=== PATIENT | male | born 1955 | race Two or more races ===

== ENCOUNTER 2016-10-01 09:36 | Day surgery (SDC) | payer OTHER ==
[2016-09-30 11:12] VITALS: Ht 167.6 cm; Wt 80.0 kg
[2016-10-01] VITALS (15 sets, daily range): BP systolic 91–226; BP diastolic 44–102; PULSE 67–86; RESP 15–23
[~2016-10-01] VITALS: Ht 167.6 cm; Wt 80.0 kg
[~2016-10-01 09:36] MED LIST: LIDOCAINE 1%/EPI 30 ML INJ INJ ONE
[2016-10-01] MEDS ORDERED: NA PHOSPHATE/BIPHOS 133 ML ENEMA PR ONE (10:30)
--- NOTE | 2016-10-01 10:34 | RADRPT ---
PROCEDURE: Chest Radiograph. CLINICAL INDICATION: Preop TECHNIQUE: Single frontal chest radiograph. COMPARISON: None available FINDINGS: The cardiomediastinal silhouette is within normal limits. No infiltrate or effusion is seen. Th e bones are intact. IMPRESSION: 1. Unremarkable chest radiograph. RPTAT: KK .Jaxon Calabrese MD, MD Date Time Electronically viewed and signed by .Jaxon Calabrese MD, on 10/01/2016 10:34 .B/
--- NOTE | 2016-10-01 11:35 | EN ---
Date/Time of Note Date/Time of Note DATE: 10/01/16 TIME: 11:34 Event Note Surgery Surgery Event Note Please see the attached H&P, and note that this updated w/o any changes LUCRECIA GALLEGOS MD Oct 01, 2016 11:35
[2016-10-01] MEDS ORDERED: FENTAnyl 50 MCG/ML VIAL ONE (11:38)
[2016-10-01] MEDS ORDERED: ONDANSETRON 4 MG INJ ONE (11:38)
[2016-10-01] MEDS ORDERED: MIDAZOLAM 1 MG/ML 2 ML INJ ONE (11:38)
[2016-10-01] MEDS ORDERED: METOCLOPRAMIDE 10 MG INJ ONE (11:38)
[2016-10-01] MEDS ORDERED: PROPOFOL 20 ML ONE (11:38)
[2016-10-01] MEDS ORDERED: hydrALAzine 20 MG INJ ONE (12:04)
[2016-10-01] MEDS ORDERED: CEFAZOLIN 1 GM INJ ONE (12:07)
[2016-10-01] MEDS ORDERED: LIDOCAINE 1%/EPI 30 ML INJ ONE (12:18)
[2016-10-01] MEDS ORDERED: BUPIVACAINE 0.25% (MPF) 30 ML INJ ONE (12:18)
[2016-10-01] MEDS ORDERED: LIDOCAINE 1%/EPI 30 ML INJ INJ ONE (12:28)
[2016-10-01] MEDS ORDERED: BUPIVACAINE 0.25% (MPF) 30 ML INJ INJ ONE (12:28)
[2016-10-01] MEDS ORDERED: hydrALAzine 20 MG INJ IV PRN (12:30)
[2016-10-01] MEDS ORDERED: OXYCODONE/ACETAMINOPHEN (5/325) TAB PO PRN ×3 (12:30→13:00)
[2016-10-01] MEDS ORDERED: ONDANSETRON 4 MG INJ IV PRN ×2 (12:30→13:00)
[2016-10-01] MEDS ORDERED: HYDROmorphONE (0.2 MG/ML) 10ML SYG IV PRN ×3 (12:30)
[2016-10-01] MEDS ORDERED: LABETALOL HCL 20MG INJ IV PRN (12:30)
[2016-10-01] MEDS ORDERED: MEPERIDINE 25 MG INJ IV PRN (12:30)
[2016-10-01] MEDS ORDERED: DIPHENHYDRAMINE 50 MG INJ IV PRN (12:30)
[2016-10-01] MEDS ORDERED: KETOROLAC 30 MG INJ ONE (12:31)
--- NOTE | 2016-10-01 15:53 | OPR ---
DATE OF OPERATION: 10/01/2016 INDICATIONS: The patient is a 61-year-old male who first presented to my office a number o f weeks ago with chronic drainage from his left posterior perianal area. The patient had had draina ge from this area for quite some time and undergone previous incision and drainage. Examination in my office revealed a posterior midline internal fistulous opening. He also gave a history of having prior drainage in the past from the right posterior region. Examination revealed that he indeed davis d a fistula and would need surgery to fix this. He now presents for that procedure PREOPERATIVE DIAGNOSIS: Complex [id number]. POSTOPERATIVE DIAGNOSIS: Transsphincteric [id number] x2. PROCEDURE: 1. Proctosigmoidoscopy to 20 cm. 2. Submuscular fistulotomy with seton placement and packing of abscess cavity. SURGEON: Lucrecia Gallegos MD ANESTHESIA: General anesthesia. FINDINGS AND TECHNIQUE: The patient was brought to the operating room and following successful komal ction of anesthesia, was placed in the lithotomy position utilizing the Uday stirrups. He was care fully padded and protected. Sequential compression devices were placed. The patient's perianal are a was prepped with Betadine solution and he was draped with sterile towels and drapes. Rigid procto scopy was performed to a level of 20 cm. The preparation was excellent and the exam was normal. Th e scope was removed and after reapplication of Betadine solution, local anesthesia was instilled int o the perirectal tissues for postoperative analgesia. Next, using a medium Hill-Choudhury retractor was placed into the anal canal where a prominent glacing machine tender ior midline internal opening was located at the dentate line. Examination of the perianus revealed 2 external openings, one 3 fingerbreadths from the anal verge just to the left of the posterior midl ine, and one 3.5 to 4 fingerbreadths from the anal verge in the left posterior position. Using a ma lleable probe passing it from the external opening, both fistula tracts passed to the same internal opening. Next, using the electrocautery unit, the mucosa, submucosa, skin and subcutaneous tissue w ere divided with the electrocautery unit opening up the common fistula tracts. Portions of the inte rnal sphincter muscle were also divided, but there was no division of the external sphincter muscle. After curettage of the abscess cavity, which was most prominent in the left posterior position, th e fistula tract was curetted as well. A large vesi-loop was placed around the external sphincter mu scle and secured to itself with interrupted ties of 0 silk suture. This was a snug, but noncutting seton. After irrigation, no further bleeding was noted. The external abscess cavity, which was chr onic in nature, was packed with 1/2 inch iodoform gauze. A total of 30 mL of local anesthesia was i nstilled into the perirectal tissues. At the end of the procedure, sponge and needle counts were co rrect x2. The patient tolerated the procedure well, was transported to the recovery room in stable condition. Dictated By: LUCRECIA GALLEGOS MD, CH/MARNIE Conf#: [id number] DID#: [id number]
== END 2016-10-01 15:35 | disposition home or self-care (01) ==
LOC: SDS 09:36 → EDSEX 11:00 → SDS 15:35
PROVIDERS: ATTEND Colon & Rectal Surgery
DX: K60.3 Anal fistula (principal); E66.9 Obesity, unspecified; Z68.28 Body mass index [BMI] 28.0-28.9, adult
CPT/HCPCS: 45300; 46270; 71010; J0360; J0690; J1885; J2250; J2765; J3010; Z7512; Z7610; J2405

== ENCOUNTER 2017-08-09 13:09 | Inpatient (IN) | payer OTHER ==
[~2017-08-09] VITALS: Ht 172.7 cm; Wt 82.8 kg
[2017-08-09] VITALS (9 sets, daily range): BP systolic 132–225; BP diastolic 62–103; PULSE 63–68; RESP 17–22; Ht 172.7 cm; Wt 82.8 kg
--- NOTE | 2017-08-09 14:24 | RADRPT ---
PROCEDURE: XR Chest. CLINICAL INDICATION: Shortness of breath TECHNIQUE: Single portable view of the chest was obtained COMPARISON: October 01, 2016 FINDINGS: The trachea is midline. The cardiac silhouette and pulmonary vascularity are within normal limits. T he lungs are clear. The costophrenic angles are sharp. IMPRESSION: 1. No evidence of acute cardiopulmonary disease. RPTAT: AAPP Physician Micheal Date Time Electronically viewed and signed by Mahi Ortiz Physician on 08/09/2017 14:24 JL/
[2017-08-09 14:30] LABS: BASOPHILS % 0.2 % (0.0-2.0); EOSINOPHILS # 0.2 10^3/ul (0.0-0.5); HEMOGLOBIN 13.8 g/dl (14.0-18.0); LYMPHOCYTES # 2.6 10^3/ul (0.8-2.9); LYMPHOCYTES % 44.1 % (15.0-51.0); MEAN CORPUSCULAR HEMOGLOBIN 30.9 pg (29.0-33.0); MEAN CORPUSCULAR HGB CONC 33.7 g/dl (32.0-37.0); MEAN CORPUSCULAR VOLUME 91.9 fl (82.0-101.0); MEAN PLATELET VOLUME 9.4 fl (7.4-10.4); MONOCYTE # 0.5 10^3/ul (0.3-0.9); MONOCYTES % 7.6 % (0.0-11.0); NEUTROPHIL # 2.7 10^3/ul (1.6-7.5); NEUTROPHILS % 44.9 % (39.0-77.0); PLATELET COUNT 245 10^3/UL (140-415); RED BLOOD COUNT 4.46 10^6/ul (4.70-6.10); RED CELL DISTRIBUTION WIDTH 13.3 % (11.5-14.5); WHITE BLOOD COUNT 5.9 10^3/ul (4.8-10.8)
--- NOTE | 2017-08-09 14:44 | RADRPT ---
PROCEDURE: CT Brain without contrast. CLINICAL INDICATION: Neurological deficit. TECHNIQUE: A CT of the brain was performed on multidetector high-resolution CT scanner utilizing a xial sections from the skull base through the vertex without contrast. The scan was reviewed in sof t tissue brain and high frequency resolution bone algorithm windows. Images were reviewed on a high -resolution PACS workstation. One or more the following does reduction techniques were utilized: Aut omated exposure control, adjustment of the mA/ or kV according to patient's size, or use of iterativ e reconstruction technique. The exam CTDI = 42.69 mGy and the DLP = 630.24 mGy-cm. DICOM images are available. COMPARISON: None available. FINDINGS: The ventricles and sulci are mildly prominent indicative of volume loss. There is no intracranial he morrhage, mass effect or midline shift. No abnormal intra-axial or extra-axial fluid collections ar e seen. The hernandez/white matter differentiation is preserved. There are mild scattered foci of hypoattenuation in the white matter, which are nonspecific in etiol ogy but likely reflect chronic small vessel ischemic changes. There are mild intracranial vascular calcifications consistent with atherosclerosis. The visualized paranasal sinuses are essentially conor ar. IMPRESSION: 1. No acute intracranial hemorrhage, transcortical infarction or mass effect. 2. Mild intracranial atherosclerosis and chronic small vessel ischemic changes. 3. Mild generalized cerebral volume loss. RPTAT: HH .Loren Avitia MD, MD Date Time Electronically viewed and signed by .Loren Avitia MD, MD on 08/09/2017 14:44 .N/
[2017-08-09 14:46] LABS: INR 0.95; PROTIME 12.7 Sec (12.2-14.2)
[2017-08-09 14:47] LABS: ADD UMIC YES; UR ASCORBIC ACID NEGATIVE (NEGATIVE); UR BILIRUBIN (Dip) NEGATIVE (NEGATIVE); UR BLOOD (Dip) 2+ mg/dL (NEGATIVE); UR CLARITY CLEAR (CLEAR); UR COLOR YELLOW (YELLOW); UR GLUCOSE (Dip) NEGATIVE (NEGATIVE); UR KETONES (Dip) NEGATIVE (NEGATIVE); UR LEUKOCYTE ESTERASE (Dip) NEGATIVE Leu/ul (NEGATIVE); UR MUCUS FEW /HPF (NONE SEEN); UR NITRITE (Dip) NEGATIVE (NEGATIVE); UR RBC 2 /HPF (0-5); UR SPECIFIC GRAVITY (Dip) 1.024 (1.003-1.030); UR SQUAMOUS EPITHELIAL CELL FEW /HPF (FEW); UR TOTAL PROTEIN (Dip) 1+ mg/dl (NEGATIVE); UR UROBILINOGEN (Dip) NEGATIVE (NEGATIVE)
[2017-08-09 14:47] LABS: ANION GAP 16 (8-16); BLOOD UREA NITROGEN 16 mg/dl (7-20); CALCIUM 9.6 mg/dl (8.4-10.2); CARBON DIOXIDE 27 mmol/L (21-31); CHLORIDE 103 mmol/L (97-110); CREATININE 0.94 mg/dl (0.61-1.24); GLUCOSE 91 mg/dl (70-220); PARTIAL THROMBOPLASTIN TIME 33.7 Sec (25.0-35.0); POTASSIUM 4.2 mmol/L (3.5-5.1); SODIUM 142 mmol/L (135-144)
[2017-08-09 15:00] LABS: TROPONIN-I < 0.012 ng/ml (0.00-0.12)
[2017-08-09] MEDS ORDERED: ASPIRIN 325 MG TAB PO ONE (15:00)
[2017-08-09] MEDS ORDERED: ONDANSETRON 4 MG INJ IV PRN ×2 (15:00→18:00)
[2017-08-09] MEDS ORDERED: ACETAMINOPHEN 325 MG TAB PO PRN ×2 (15:00→18:00)
[2017-08-09 17:16] LABS: BARBITURATES Negative (NEGATIVE); BENZODIAZEPINES Negative (NEGATIVE); CANNABINOIDS Negative (NEGATIVE); COCAINE Negative (NEGATIVE); OPIATES Negative (NEGATIVE)
--- NOTE | 2017-08-09 17:17 | ERD ---
ER Documentation Chief Complaint Chief Complaint right shoulder pain and arm pain x 3 months, numbness to right hand x 3 day HPI Patient is a 61-year-old male with hypertension who presents for high blood pressure and arm numbness. The patient was sent by the [facility] for arm numbness and high blood pressure. The patient has right arm pain and numbness which started 3 days ago. He does not take any medication at this time for blood pressure. He said that he has weakness to his right hand. ROS All systems reviewed and are negative except as per history of present illness. Medications Home Meds No Active Prescriptions or Reported Meds Allergies Allergies: Coded Allergies: No Known Allergy (Unverified , 08/09/17) PMhx/Soc History of Surgery: No Anesthesia Reaction: No Hx Neurological Disorder: No Hx Respiratory Disorders: No Hx Cardiac Disorders: Yes (htn ) Hx Psychiatric Problems: No Hx Miscellaneous Medical Probl: No Hx Alcohol Use: No Hx Substance Use: No Hx Tobacco Use: No Smoking Status: Unknown if ever smoked FmHx Family History: No diabetes Physical Exam Vitals Vital Signs Date Time Temp Pulse Resp B/P Pulse Ox O2 Delivery O2 Flow Rate FiO2 08/09/17 15:50 64 18 181/89 99 Room Air 08/09/17 14:42 76 18 176/74 99 Room Air 08/09/17 13:14 98.0 72 18 241/102 98 Physical Exam Const: No acute distress Head: Atraumatic Eyes: Normal Conjunctiva ENT: Normal External Ears, Nose and Mouth. Neck: Full range of motion..~ No meningismus. Resp: Clear to auscultation bilaterally Cardio: Regular rate and rhythm, no murmurs Abd: Soft, non tender, non distended. 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, no slurred speech Psych: Normal Mood and Affect Result Diagram: 08/09/17 1415 08/09/17 1415 Results 24 hrs Laboratory Tests Test 08/09/17 14:15 08/09/17 14:30 White Blood Count 5.910^3/ul Red Blood Count 4.4610^6/ul Hemoglobin 13.8g/dl Hematocrit 41.0% Mean Corpuscular Volume 91.9fl Mean Corpuscular Hemoglobin 30.9pg Mean Corpuscular Hemoglobin Concent 33.7g/dl Red Cell Distribution Width 13.3% Platelet Count 34635^3/UL Mean Platelet Volume 9.4fl Neutrophils % 44.9% Lymphocytes % 44.1% Monocytes % 7.6% Eosinophils % 3.0% Basophils % 0.2% Nucleated Red Blood Cells % 0.0/100WBC Neutrophils # 2.710^3/ul Lymphocytes # 2.610^3/ul Monocytes # 0.510^3/ul Eosinophils # 0.210^3/ul Basophils # 0.010^3/ul Nucleated Red Blood Cells # 0.010^3/ul Prothrombin Time 12.7Sec Prothrombin Time Ratio 1.0 INR International Normalized Ratio 0.95 Activated Partial Thromboplast Time 33.7Sec Sodium Level 142mmol/L Potassium Level 4.2mmol/L Chloride Level 103mmol/L Carbon Dioxide Level 27mmol/L Anion Gap 16 Blood Urea Nitrogen 16mg/dl Creatinine 0.94mg/dl Glucose Level 91mg/dl Hemoglobin A1c 5.9% Calcium Level 9.6mg/dl Troponin I < 0.012ng/ml Urine Color YELLOW Urine Clarity CLEAR Urine pH 5.0 Urine Specific [place] 1.024 Urine Ketones NEGATIVEmg/dL Urine Nitrite NEGATIVEmg/dL Urine Bilirubin NEGATIVEmg/dL Urine Urobilinogen NEGATIVEmg/dL Urine Leukocyte Esterase NEGATIVELeu/ul Urine Microscopic RBC 2/HPF Urine Microscopic WBC 1/HPF Urine Squamous Epithelial Cells FEW/HPF Urine Mucus FEW/HPF Urine Hemoglobin 2+mg/dL Urine Glucose NEGATIVEmg/dL Urine Total Protein 1+mg/dl Current Medications Medications (Trade) Dose Ordered Sig/Yulia Route PRN Reason Start Time Stop Time Status Last Admin Dose Admin Labetalol HCl (Labetalol) 20 mg Q20M PRN IV ELEVATED BLOOD PRESSURE 08/09/17 14:30 Aspirin (Aspirin) 325 mg ONCE ONCE PO 08/09/17 15:00 08/09/17 15:01 DC 08/09/17 15:01 Ondansetron HCl (Zofran Inj) 4 mg ER BRIDGE PRN IV NAUSEA AND/OR VOMITING 08/09/17 15:00 08/10/17 14:59 Acetaminophen (Tylenol Tab) 650 mg ER BRIDGE PRN PO MILD PAIN/FEVER 08/09/17 15:00 08/10/17 14:59 Procedures/MDM EKG read by me: Rate/Rhythm: Regular rate and rhythm at a normal rate Intervals: Normal Impression: No evidence of ischemia or arrhythmia CT brain shows no bleeding or mass per radiology. Patient is a 61-year-old male presents with acute hypertension as well as right arm numbness. I was concerned for hypertensive emergency. It is also possible that he may have stroke and I believe admission to the hospital is appropriate. He was given aspirin after he passed a swallow evaluation. He had an NIH stroke scale performed. The patient will be admitted to the care of Dr. Poe to a telemetry bed as the patient has [facility] insurance. He was given labetalol IV for blood pressure management. Critical Care: Time: 35 minutes excluding all billable procedures. Treatments/Evaluations: Close monitoring and treatment of unstable vital signs, cardiorespiratory, and neurologic status, while maintaining tight balance of fluid, respiratory, and cardiac interventions. Departure Diagnosis: Primary Impression: Hypertensive emergency Additional Impression: Pain of right arm Condition: PORTILLO Velasco MD Aug 09, 2017 17:17
[2017-08-09] MEDS ORDERED: MAGNESIUM HYDROXIDE 30ML CUP PO PRN (18:00)
[2017-08-09] MEDS ORDERED: morphine 2 MG INJ IV PRN (18:00)
[2017-08-09] MEDS ORDERED: NACL 0.9% 3 ML SYG IV SCH (18:00)
[2017-08-09] MEDS ORDERED: DOCUSATE SODIUM 100 MG CAP PO PRN (18:00)
--- NOTE | 2017-08-09 18:19 | QN ---
Documentation Comment [id number] MALCOLM BUSTILLO MD Aug 09, 2017 18:19
[2017-08-09] MEDS ORDERED: hydrALAzine 20 MG INJ IV PRN (19:00)
[2017-08-09 19:36] LABS: CHOL/HDL RATIO 7.1 RATIO
[2017-08-09] MEDS: LABETALOL HCL 20MG INJ IV PRN ×2 (20:37→21:28)
--- NOTE | 2017-08-09 20:37 | HP ---
DATE OF ADMISSION: 08/09/2017 HISTORY OF PRESENT ILLNESS: Geno Dean is a 61-year-old male who has a history of hypertension, history of proctosigmoidoscopy, history of submuscular fistulotomy, with seton placement and packing of abscess cavity 09/2016. The patient now presents with right upper extremity pain and some numbness. Denies any slurred speech, diplopia, blurred vision. Denies any weakness of the lower extremity or left upper extremity. The patient denies any headache as well as no chest pain. The patient seen in the ER. Had brain CT scan done, shows no acute intracranial hemorrhage, transcortical infarction or mass effect, mild intracranial atherosclerosis and chronic small vessel ischemic changes, mild generalized cerebral volume loss. The patient had a chest x-ray done. No evidence of acute cardiopulmonary disease. The patient had blood pressure recorded as in the ER 181/89 to 241/_120 Hematocrit 41, sodium 142, potassium 4.2. EKG recorded as in normal sinus rhythm, and the patient is being admitted for further management. PAST MEDICAL HISTORY: Hypertension and a history of fistula surgery rectum 2016. ALLERGIES: NEGATIVE. FAMILY HISTORY: Hypertension. SOCIAL HISTORY: Negative. MEDICATIONS AT HOME: Does not know the name of the medicine. REVIEW OF SYSTEMS HEENT: As mentioned. RESPIRATORY: As mentioned. CARDIOVASCULAR: No chest pain or palpitation right now. ABDOMEN: Unremarkable. EXTREMITIES: Unremarkable. GENITOURINARY: Unremarkable. MUSCULOSKELETAL: Unremarkable. PHYSICAL EXAMINATION: GENERAL: The patient is awake, alert, overweight. VITAL SIGNS: Current as mentioned above. The patient's blood pressure 225/103. HEENT: Head is atraumatic, normocephalic. Pupils equal, reactive to light. NECK: Supple. There is no JVD. LUNGS: Clear. CARDIOVASCULAR: S1, S2 are normal. ABDOMEN: Soft, nontender. Bowel sounds positive. No palpable mass or hepatosplenomegaly. No guarding, rebound tenderness. EXTREMITIES: There is no cyanosis, clubbing or edema. CENTRAL NERVOUS SYSTEM: The patient is awake, alert with no focal deficit. LABORATORY DATA: As mentioned above. IMPRESSION: 1. Uncontrolled malignant hypertension. 2. Rule out acute coronary syndrome. 3. Obesity. 4. Rule out dyslipidemia. PLAN: Admit this patient. The patient will have troponin sent, 2D echo, carotid duplex scan. Cardiology consultation will be considered. Blood pressure will be controlled. Home medications will be reviewed and continued. DVT prophylaxis. PPI. Orders were done. Dictated By: MALCOLM BUSTILLO MD BS/NTS Conf#: [id number] DID#: [id number] CC: MALCOLM BUSTILLO MD;*EndCC* MTDD
[2017-08-09 21:31] LABS: CREATINE KINASE 316 IU/L (23-200)
[2017-08-09 21:54] LABS: CK-MB 2.09 ng/ml (0.0-2.4); TROPONIN-I < 0.012 ng/ml (0.00-0.12)
--- NOTE | 2017-08-09 22:00 | RADRPT ---
PROCEDURE: US carotid arteries. CLINICAL INDICATION: Dizziness. Syncope. TECHNIQUE: Multiple sonographic images of the carotid arteries and vertebral arteries were obtaine d utilizing hernandez scale, duplex, and color-flow imaging. The images were reviewed on a PACS workstati on. COMPARISON: No prior studies are available for comparison. FINDINGS: Evaluation of the right carotid bifurcation region reveals mild atherosclerotic disease. Evaluation of the left carotid bifurcation region reveals mild atherosclerotic disease. There is antegrade flow within the vertebral arteries bilaterally. RIGHT CAROTID MEASUREMENTS: Common Carotid Dehfuu30 (cm/sec) Internal Carotid Artery 102 (cm/sec) External Carotid Artery 125 (cm/sec) Vertebral Artery 54 (cm/sec) Internal Carotid/Common Carotid1.5 LEFT CAROTID MEASUREMENTS: Common Carotid Emvudq89 (cm/sec) Internal Carotid Artery 70 (cm/sec) External Carotid Artery 136 (cm/sec) Vertebral Artery 59 (cm/sec) Internal Carotid/Common Carotid0.9 Validated velocity measurements with angiographic measurements. Velocity criteria are extrapolated f rom diameter data as defined by the Society of Radiologists in Ultrasound Consensus Conference. Radi ology 2003; 229;340-346. This study does indirectly reference the measurement of the distal ICA denny meter as the denominator for stenosis measurement. IMPRESSION: 1. Less than 50% stenosis bilaterally in the internal carotid arteries. 2. Normal antegrade flow in the vertebral arteries bilaterally. RPTAT: QQ SRU Consensus Conference Criteria for the Diagnosis of Carotid Artery Stenosis* Degree of Stenosis, % ICA PSV, cm/sec Plaque Estimate, % ICA/CCA PSV Ratio Normal <125 None <2.0 <50 <125 <50 <2.0 50 69 125-230 >50 2.0-4.0 >70 but less than near occlusion >230 >50 <4.0 Near occlusion High, low, or undetectable Visible Variable Total occlusion Undetectable Visible, no detectable lumen Not applicable *Cartoid artery stenosis: hernandez-scale and Doppler US diagnosis. Society of Radiologists in Ultrasound Consensus Conference. Radiology 2003; 229: 340-346 .Kojo Ro MD, Date Time Electronically viewed and signed by .Kojo Ro MD, on 08/09/2017 22:00 .R/
--- NOTE | 2017-08-09 22:29 | CONS ---
DATE OF ADMISSION: 08/09/2017 DATE OF CONSULTATION: 08/09/2017 CARDIOLOGY CONSULTATION REASON FOR CONSULTATION: Hypertensive urgency/emergency. REQUESTING PHYSICIAN: Dr. Neo Bustillo HISTORY OF PRESENT ILLNESS: Mr. Dean is a 61-year-old male with a history of hypertension, anal fistula, status post treatment secondary to abscess, who presented with right upper extremity pain, some numbness radiating down to his fingers. Initially upon arrival, temperature 98, blood pressure 241/102, pulse 72, respiratory rate 18, saturating 98%. The patient's labs revealed a white blood cell count of 5.9, hemoglobin 13.8, platelet count of 245, sodium 142, potassium 4.2, creatinine 0.9, BUN of 16. Troponin negative. LDL 199, HDL 39. INR of 0.95. Tox screen negative. UA negative. The patient underwent a chest x-ray revealing no evidence of acute cardiopulmonary abnormalities. The patient underwent a head CT revealing no acute intracranial hemorrhage, mild intracranial atherosclerosis, mild generalized cerebral volume loss. The patient's electrocardiogram revealed sinus rhythm at a rate of 66, normal axis, normal intervals with no significant ST-T wave abnormalities. The patient has been admitted to the floor and since admit to the floor, patient has been started on Toprol, Diovan, clonidine and has p.r.n. labetalol written for, as well as hydralazine. The patient continues to have systolic blood pressures in the 190s at this time. PAST MEDICAL HISTORY: As above in HPI. MEDICATIONS CURRENTLY IN HOSPITAL: 1. Lovenox 40 mg p.o. daily. 2. Aspirin 325 mg daily. 3. Toprol-XL 25 mg daily. 4. Diovan 80 mg daily. 5. Clonidine 0.1 mg p.o. q.8. 6. Protonix 40 mg daily. 7. Hydralazine 20 IV q.6 p.r.n. 8. Tylenol p.r.n. 9. Zofran p.r.n. 10. Morphine p.r.n. 11. Milk of magnesia. 12. Labetalol p.r.n. ALLERGIES: NO KNOWN DRUG ALLERGIES. SOCIAL HISTORY: No tobacco., ETOH, patient denies. No illicit drug use. FAMILY HISTORY: No history of sudden cardiac or early CAD. REVIEW OF SYSTEMS: As above in HPI. CONSTITUTIONAL: No fevers, chills. PULMONARY: No current shortness of breath. CARDIOVASCULAR: No current chest pain. GASTROINTESTINAL: No vomiting. GENITOURINARY: No hematuria. MUSCULOSKELETAL: Right upper extremity pain. PSYCHIATRIC: No documented psych history. NEUROLOGIC: No documented history of CVA. PHYSICAL EXAMINATION: VITAL SIGNS: Temperature of 98, blood pressure most recently 190/90, pulse 64, respirations 17, saturating 99%. GENERAL: The patient is alert, awake, in no acute distress. NECK: JVP approximately 8 to 9 cm of water. CHEST: Fair air movement throughout. HEART: Regular rate and rhythm, normal S1, S2, I/ systolic murmur, nondisplaced PMI. ABDOMEN: Positive bowel sounds, soft. EXTREMITIES: No pitting edema, 1+ pulses bilaterally, posterior tibial. LABORATORY DATA: As above in HPI with no further labs for my review at this time. IMAGING STUDIES: No further imaging studies for my review at this time. ECG: As above in HPI. No further electrocardiograms for my review at this time. IMPRESSION: 1. Hypertensive urgency/emergency. 2. Dyslipidemia with low HDL. 3. Right upper extremity pain, numbness. 4. Hypertriglyceridemia. 5. Anemia, mild. RECOMMENDATIONS: 1. At this time, would maintain patient on telemetry monitoring to follow rhythm and rate control closely. 2. Complete a rule out for myocardial infarction to ensure that the patient has not developed any end organ damage in the setting of hypertensive urgency/ emergency. 3. Check a 2D echocardiogram to further assess patient's ejection fraction, wall motion and any major abnormalities. 4. Would continue the patient's p.o. antihypertensives that have been started with up titration to improve overall systolic blood pressure control, and we will add some doses this evening to aid. Continue the patient's IV push p.r.n. medications. 5. Continue the patient's aspirin for prophylaxis against cardiovascular events. Thank you for allowing me to take part in the care of this patient. I will continue to follow along very closely with you with further recommendations to be made as the patient progresses through his inpatient hospital clinical course. Dictated By: REY BAUTISTA/MARNIE Conf#: [id number] DID#: [id number] CC: NEO BUSTILLO MD;*EndCC* MTDD
[2017-08-09] MEDS: VALSARTAN 80 MG TAB PO SCH (23:06)
[2017-08-10] VITALS (12 sets, daily range): BP systolic 123–152; BP diastolic 59–68; PULSE 60–80; RESP 16–20
[2017-08-10] MEDS: PANTOPRAZOLE (EC) 40 MG TAB PO SCH (05:23)
[2017-08-10 07:34] LABS: CREATINE KINASE 236 IU/L (23-200)
[2017-08-10 07:48] LABS: CHOL/HDL RATIO 7.4 RATIO; CK-MB 1.31 ng/ml (0.0-2.4); TROPONIN-I < 0.012 ng/ml (0.00-0.12)
[2017-08-10] MEDS: METOPROLOL (XL) 25 MG TAB PO SCH (08:42)
[2017-08-10] MEDS: ASPIRIN 325 MG TAB PO SCH (08:43)
[2017-08-10] MEDS: VALSARTAN 80 MG TAB PO SCH ×2 (08:43→17:51)
[2017-08-10] MEDS ORDERED: VALSARTAN 80 MG TAB PO SCH (09:00)
[2017-08-10] MEDS: ENOXAPARIN 40 MG/0.4 ML SYG SC SCH (09:23)
--- NOTE | 2017-08-10 11:32 | CONS ---
Date/Time of Note Date/Time of Note DATE: 08/10/17 TIME: 11:30 Assessment/Plan Assessment/Plan Additional Assessment/Plan 1. Hypertensive urgency/emergency- BP in better range, will monitor now. 2. Dyslipidemia with low HDL- Rx as neeeded. 3. Right upper extremity pain, numbness- doubt cardiac, 4. Hypertriglyceridemia. 5. Anemia, mild - no signs of bleeding. Consultation Date/Type/Reason Admit Date/Time Aug 09, 2017 at 15:00 Initial Consult Date 24 HR Interval Summary Free Text/Dictation NO acute events BP in good range now - no CP, no ectopy on tele. ROS: No fever, no chills, no nausea, no vomiting, no diarrhea/constipation No recent weight changes No chest pain, no PND, no orthopnea No dizziness, blurred vision No thirst, no heat or cold intolerance Exam/Review of Systems Vital Signs Vitals Vital Signs Date Time Temp Pulse Resp B/P Pulse Ox O2 Delivery O2 Flow Rate FiO2 08/10/17 08:12 68 08/10/17 07:46 98.5 18 123/62 95 08/09/17 19:20 Room Air Intake and Output 08/09/17 08/09/17 08/10/17 15:00 23:00 07:00 Intake Total 350 ml Balance 350 ml Exam General: WN/WD/NAD, AOx 2-3 HEENT: Unicetric/atraumatic/EOMI (follow commands) NECK: JVD elevated, no thyromegaly Lymph: no lymphadenopathy HEART: regular with no S3, II/ systolic murmur at apex LUNGS: Coarse sounds ABD: soft, NT, ND, +BS : Intact Neuro: non focal SKIN: chronic changes EXT: trace edema Results Result Diagram: 08/09/17 1415 08/09/17 1415 Results 24 hrs Laboratory Tests Test 08/09/17 14:15 08/09/17 14:30 08/09/17 21:00 08/10/17 06:34 White Blood Count 5.9 Red Blood Count 4.46 L Hemoglobin 13.8 L Hematocrit 41.0 L Mean Corpuscular Volume 91.9 Mean Corpuscular Hemoglobin 30.9 Mean Corpuscular Hemoglobin Concent 33.7 Red Cell Distribution Width 13.3 Platelet Count 245 Mean Platelet Volume 9.4 Neutrophils % 44.9 Lymphocytes % 44.1 Monocytes % 7.6 Eosinophils % 3.0 Basophils % 0.2 Nucleated Red Blood Cells % 0.0 Neutrophils # 2.7 Lymphocytes # 2.6 Monocytes # 0.5 Eosinophils # 0.2 Basophils # 0.0 Nucleated Red Blood Cells # 0.0 Prothrombin Time 12.7 Prothrombin Time Ratio 1.0 INR International Normalized Ratio 0.95 Activated Partial Thromboplast Time 33.7 Sodium Level 142 Potassium Level 4.2 Chloride Level 103 Carbon Dioxide Level 27 Anion Gap 16 Blood Urea Nitrogen 16 Creatinine 0.94 Glucose Level 91 Hemoglobin A1c 5.9 Calcium Level 9.6 Troponin I < 0.012 < 0.012 < 0.012 Triglycerides Level 199 H 197 H Cholesterol Level 278 H 245 H LDL Cholesterol, Calculated 199 173 HDL Cholesterol 39 33 Cholesterol/HDL Ratio 7.1 7.4 Urine Color YELLOW Urine Clarity CLEAR Urine pH 5.0 Urine Specific [place] 1.024 Urine Ketones NEGATIVE Urine Nitrite NEGATIVE Urine Bilirubin NEGATIVE Urine Urobilinogen NEGATIVE Urine Leukocyte Esterase NEGATIVE Urine Microscopic RBC 2 Urine Microscopic WBC 1 Urine Squamous Epithelial Cells FEW Urine Mucus FEW A Urine Hemoglobin 2+ H Urine Glucose NEGATIVE Urine Total Protein 1+ H Urine Opiates Screen Negative Urine Barbiturates Negative Urine Amphetamines Screen Negative Urine Benzodiazepines Screen Negative Urine Cocaine Screen Negative Urine Cannabinoids Negative Creatine Kinase 316 H 236 H Creatine Kinase Index 0.7 0.6 Creatinine Kinase MB (Mass) 2.09 1.31 Medications Medications Current Medications Ondansetron HCl (Zofran Inj) 4 mg Q6H PRN IV NAUSEA AND/OR VOMITING; Start at 18:00 Acetaminophen (Tylenol Tab) 650 mg Q6H PRN PO PAIN LEVEL 1-3 OR FEVER; Start 08/09/17 at 18:00 Morphine Sulfate (morphine) 2 mg Q4H PRN IV SEVERE PAIN LEVEL 7-10; Start at 18:00 Docusate Sodium (Colace) 100 mg Q12H PRN PO CONSTIPATION; Start 08/09/17 at 18 :00 Magnesium Hydroxide (Milk Of Mag) 30 ml DAILY PRN PO CONSTIPATION; Start 08/09 at 18:00 Pantoprazole (Protonix Tab) 40 mg DAILY@06 PO Last administered on 08/10/17t 05:23; Admin Dose 40 MG; Start 08/10/17 at 06:00 Enoxaparin Sodium (Lovenox) 40 mg DAILY SC Last administered on 08/10/17 09: 23; Admin Dose 40 MG; Start 08/10/17 at 09:00 Aspirin (Aspirin) 325 mg DAILY PO Last administered on 08/10/17 08:43; Admin Dose 325 MG; Start 08/10/17 at 09:00 Metoprolol Succinate (Toprol Xl) 25 mg DAILY PO Last administered on 08:42; Admin Dose 25 MG; Start 08/10/17 at 09:00 Clonidine (Catapres) 0.1 mg Q8 PO Last administered on 08/10/17 05:23; Admin Dose 0.1 MG; Start 08/09/17 at 22:00 Hydralazine HCl (Apresoline) 20 mg Q6H PRN IV for sbp >170; Start 08/09/17 at 19:00 RUBEN LEGER MD Aug 10, 2017 11:32
--- NOTE | 2017-08-10 14:26 | RADRPT ---
Vent Rate: 70 bpm RR Interval: 0 msec AL Interval: 186 msec QRS Duration: 86 msec QT Interval: 406 msec QTC Interval: 438 msec P-R-T [place]: 56 - 56 - 57 degrees Normal sinus rhythm Normal ECG Electronically Signed By: Ramesh Matias [id number]
--- NOTE | 2017-08-10 19:51 | PN ---
Date/Time of Note Date/Time of Note DATE: 08/10/17 TIME: 19:50 Assessment/Plan VTE Prophylaxis VTE Prophylaxis Intervention: other Lines/Catheters IV Catheter Type (from Nrsg): Saline Lock Urinary Cath still in place: No Assessment/Plan Chief Complaint/Hosp Course IMPRESSION: 1. Uncontrolled malignant hypertension.better 2. Rule out acute coronary syndrome. 3. Obesity. 4. dyslipidemia. 5 r/o renovascular htn plan kid us lipitor Problems: Subjective 24 Hr Interval Summary ENT: no complaints Respiratory: no complaints Cardiovascular: no complaints Gastrointestinal: no complaints Genitourinary: no complaints Neurologic: no complaints, No dizziness, No focal-weakness, No headache Exam/Review of Systems Vital Signs Vitals Vital Signs Date Time Temp Pulse Resp B/P Pulse Ox O2 Delivery O2 Flow Rate FiO2 08/10/17 16:06 61 08/10/17 15:59 97.8 18 143/66 97 08/09/17 19:20 Room Air Intake and Output 08/09/17 08/09/17 08/10/17 15:00 23:00 07:00 Intake Total 350 ml Balance 350 ml Exam Neck: supple Respiratory: clear to auscultation Cardiovascular: regular rate and rhythm Gastrointestinal: soft Musculoskeletal: nl extremities to inspection Extremities: normal pulses Neurological: MATE FOURTH II-XII intact Results Result Diagram: 08/09/17 1415 08/09/17 1415 Results 24 hrs Laboratory Tests Test 08/09/17 21:00 08/10/17 06:34 Creatine Kinase 316 H 236 H Creatine Kinase Index 0.7 0.6 Creatinine Kinase MB (Mass) 2.09 1.31 Troponin I < 0.012 < 0.012 Triglycerides Level 197 H Cholesterol Level 245 H LDL Cholesterol, Calculated 173 HDL Cholesterol 33 Cholesterol/HDL Ratio 7.4 Medications Medications Current Medications Ondansetron HCl (Zofran Inj) 4 mg Q6H PRN IV NAUSEA AND/OR VOMITING; Start at 18:00 Acetaminophen (Tylenol Tab) 650 mg Q6H PRN PO PAIN LEVEL 1-3 OR FEVER; Start 08/09/17 at 18:00 Morphine Sulfate (morphine) 2 mg Q4H PRN IV SEVERE PAIN LEVEL 7-10; Start at 18:00 Docusate Sodium (Colace) 100 mg Q12H PRN PO CONSTIPATION; Start 08/09/17 at 18 :00 Magnesium Hydroxide (Milk Of Mag) 30 ml DAILY PRN PO CONSTIPATION; Start 08/09 at 18:00 Pantoprazole (Protonix Tab) 40 mg DAILY@06 PO Last administered on 08/10/17 05:23; Admin Dose 40 MG; Start 08/10/17 at 06:00 Enoxaparin Sodium (Lovenox) 40 mg DAILY SC Last administered on 08/10/17 09: 23; Admin Dose 40 MG; Start 08/10/17 at 09:00 Aspirin (Aspirin) 325 mg DAILY PO Last administered on 08/10/17 08:43; Admin Dose 325 MG; Start 08/10/17 at 09:00 Metoprolol Succinate (Toprol Xl) 25 mg DAILY PO Last administered on 08:42; Admin Dose 25 MG; Start 08/10/17 at 09:00 Clonidine (Catapres) 0.1 mg Q8 PO Last administered on 08/10/17 14:24; Admin Dose 0.1 MG; Start 08/09/17 at 22:00 Hydralazine HCl (Apresoline) 20 mg Q6H PRN IV for sbp >170; Start 08/09/17 at 19:00 MALCOLM BUSTILLO MD Aug 10, 2017 19:51
[2017-08-10] MEDS: ATORVASTATIN 40 MG TAB PO SCH (21:14)
[2017-08-11] VITALS (12 sets, daily range): BP systolic 114–147; BP diastolic 56–66; PULSE 57–65; RESP 17–20
--- NOTE | 2017-08-11 03:34 | RADRPT ---
PROCEDURE: US Retroperitoneum. CLINICAL INDICATION: SHIRLEY. TECHNIQUE: Multiple sonographic images of the retroperitoneum were obtained. Evaluation of the ki dneys and bladder was performed as well as visualization of the aorta and other retroperitoneal stru ctures using a curved array transducer. The images were reviewed on a PACS workstation. COMPARISON: None. FINDINGS: The right kidney measures 9.4 x 5.6 x 4.7 centimeters and the left kidney measures 9.8 x 5.2 x 4.8 c entimeters. No hydronephrosis or renal calculi are seen. The kidneys are normal in echogenicity. T he bladder is unremarkable in appearance. IMPRESSION: 1. Unremarkable retroperitoneal ultrasound.. RPTAT: HRSR Physician Alethea Date Time Electronically viewed and signed by Physician Alethea on 08/11/2017 03:34 RR/
[2017-08-11] MEDS: PANTOPRAZOLE (EC) 40 MG TAB PO SCH (05:34)
[2017-08-11] MEDS: METOPROLOL (XL) 25 MG TAB PO SCH (08:29)
[2017-08-11] MEDS: ASPIRIN 325 MG TAB PO SCH (08:29)
[2017-08-11] MEDS: VALSARTAN 80 MG TAB PO SCH ×2 (08:30→17:22)
[2017-08-11] MEDS: ENOXAPARIN 40 MG/0.4 ML SYG SC SCH (08:31)
[2017-08-11 10:02] LABS: ALBUMIN 4.2 g/dl (3.3-4.9); ALBUMIN/GLOBULIN RATIO 1.23; BILIRUBIN,INDIRECT 0.2 mg/dl (0-1.1); BILIRUBIN,TOTAL 0.2 mg/dl (0.2-1.3); CALCIUM 9.1 mg/dl (8.4-10.2); CREATININE 1.08 mg/dl (0.61-1.24); POTASSIUM 4.1 mmol/L (3.5-5.1); TOTAL PROTEIN 7.6 g/dl (6.1-8.1)
--- NOTE | 2017-08-11 15:44 | CONS ---
Date/Time of Note Date/Time of Note DATE: 08/11/17 TIME: 15:37 Assessment/Plan Assessment/Plan Chief Complaint/Hosp Course IMPRESSION: 1. Hypertensive urgency/emergency-now improved on current regimen. Trop negative x 3 2. Dyslipidemia with low HDL. 3. Right upper extremity pain, numbness. 4. Hypertriglyceridemia. 5. Anemia, mild. Recc: -Tele -Continue diovan/BB/clonidine -Continue statin/asa -Will f/u echo -If BP remains stable then ok for d/c planning from cardiac standpoint Problems: Consultation Date/Type/Reason Admit Date/Time Aug 09, 2017 at 15:00 Initial Consult Date 08/09/2017 Type of Consultation: cardiology Reason for Consultation HTN Referring Provider: MALCOLM BUSTILLO MD Exam/Review of Systems Vital Signs Vitals Vital Signs Date Time Temp Pulse Resp B/P Pulse Ox O2 Delivery O2 Flow Rate FiO2 08/11/17 12:20 60 08/11/17 11:43 98.1 17 114/56 96 08/09/17 19:20 Room Air Intake and Output 08/10/17 08/10/17 08/11/17 15:00 23:00 07:00 Intake Total 1120 ml 400 ml Balance 1120 ml 400 ml Exam Review of Systems: CONSTITUTIONAL: No fevers, chills. PULMONARY: No sob CARDIOVASCULAR: No chest pain/palpitations GASTROINTESTINAL: No nausea/vomiting. GENITOURINARY: No hematuria/dysuria. MUSCULOSKELETAL: No myagias/arthalgias. PSYCHIATRIC: The patient denies depression. NEUROLOGIC: No weakness Constitutional: alert, oriented Psych: no complaints Head: normocephalic ENMT: mucosa pink and moist Neck: jvd (8 cm waTER), supple Respiratory: clear to auscultation Cardiovascular: regular rate and rhythm Gastrointestinal: non-tender, soft Musculoskeletal: muscle tone (NORMAL) Extremities: edema (none) Neurological: other (NO focal deficits) Results Result Diagram: 08/09/17 1415 08/11/17 0839 Results 24 hrs Laboratory Tests Test 08/11/17 08:39 Sodium Level 139 Potassium Level 4.1 Chloride Level 102 Carbon Dioxide Level 27 Anion Gap 14 Blood Urea Nitrogen 20 Creatinine 1.08 Glucose Level 111 Calcium Level 9.1 Total Bilirubin 0.2 Direct Bilirubin 0.00 Indirect Bilirubin 0.2 Aspartate Amino Transf (AST/SGOT) 69 H Alanine Aminotransferase (ALT/SGPT) 92 H Alkaline Phosphatase 75 Total Protein 7.6 Albumin 4.2 Globulin 3.40 H Albumin/Globulin Ratio 1.23 Medications Medications Current Medications Ondansetron HCl (Zofran Inj) 4 mg Q6H PRN IV NAUSEA AND/OR VOMITING; Start at 18:00 Acetaminophen (Tylenol Tab) 650 mg Q6H PRN PO PAIN LEVEL 1-3 OR FEVER; Start 08/09/17 at 18:00 Morphine Sulfate (morphine) 2 mg Q4H PRN IV SEVERE PAIN LEVEL 7-10; Start at 18:00 Docusate Sodium (Colace) 100 mg Q12H PRN PO CONSTIPATION; Start 08/09/17 at 18 :00 Magnesium Hydroxide (Milk Of Mag) 30 ml DAILY PRN PO CONSTIPATION; Start 08/09 at 18:00 Pantoprazole (Protonix Tab) 40 mg DAILY@06 PO Last administered on 08/11/17 05:34; Admin Dose 40 MG; Start 08/10/17 at 06:00 Enoxaparin Sodium (Lovenox) 40 mg DAILY SC Last administered on 08/11/17 08: 31; Admin Dose 40 MG; Start 08/10/17 at 09:00 Aspirin (Aspirin) 325 mg DAILY PO Last administered on 08/11/17 08:29; Admin Dose 325 MG; Start 08/10/17 at 09:00 Metoprolol Succinate (Toprol Xl) 25 mg DAILY PO Last administered on 08:29; Admin Dose 25 MG; Start 08/10/17 at 09:00 Clonidine (Catapres) 0.1 mg Q8 PO Last administered on 08/11/17 14:19; Admin Dose 0.1 MG; Start 08/09/17 at 22:00 Hydralazine HCl (Apresoline) 20 mg Q6H PRN IV for sbp >170; Start 08/09/17 at 19:00 Atorvastatin Calcium (Lipitor) 40 mg HS PO Last administered on 08/10/17 21: 14; Admin Dose 40 MG; Start 08/10/17 at 21:00 REY ADAMS 29, 2017 15:43
--- NOTE | 2017-08-11 17:08 | RADRPT ---
Echocardiogram Report Patient Name: LEXUS KUHN Gender: Male Date: 1955 Study Date: 10-Aug-2017 Mule Driver: Mamadou [facility] Location: 5557[address]A Ref. Physician: MALCOLM BUSTILLO Quality: Adequate Procedures: Transthoracic echocardiogram with complete 2D, M-Mode, and doppler examination. Indications: Coronary Artery Disease. 2D/M Mode Doppler Measurement Value Normal Ranges Measurement Value Normal Ranges LVIDd 2D 4.9 3.5 - 5.6 cm AV Peak Cesar 1.2 m/sec LVIDs 2D 3.3 2.1 - 4.1 cm AV Peak PG 5.8 mmHg LVPWd 2D 1.3 0.6 - 1.1 cm LVOT Peak Cesar 1.0 m/sec IVSd 2D 1.3 0.6 - 1.1 cm LVOT Peak PG 3.9 mmHg AoR Diam 2D 2.9 2.0 - 3.7 cm MV E Peak Cesar 0.6 m/sec EDV 2D 110.6 cm3 MV A Peak Cesar 0.6 m/sec ESV 2D 36.2 cm3 MV E/A 0.9 LA Dimen 2D 2.8 2.3 - 4.0 cm MV Decel Time 206 msec MV Decel Holt 3 MV E/A 0.9 Findings Left Ventricle: Normal left ventricular systolic function. Normal left ventricular cavity size. Mild concentric left ventricular hypertrophy. Ejection fraction is visually estimated at 60 %. Tissue Doppler/Mitral Doppler indices are consistent with impaired relaxation (Stage I diastolic dysfunction). Right Ventricle: Normal right ventricular size. Normal right ventricular systolic function. Left Atrium: The left atrium is normal in size. Right Atrium: The right atrium is normal in size. Mitral Valve: Mild mitral leaflet calcification. Mild mitral annular calcification. Trace mitral regurgitation. Aortic Valve: No significant aortic stenosis or insufficiency. Aortic cusps appear mildly calcified. Trace aortic valve regurgitation. Tricuspid Valve: Normal appearance of the tricuspid valve. Unable to obtain RVSP due to minimal presence of tricuspid regurgitation. There is trace tricuspid regurgitation. Pulmonic Valve: Pulmonic valve not well visualized. There is trace pulmonic regurgitation. Pericardium: Normal pericardium with no significant pericardial effusion. Aorta: Normal aortic root. IVC: Normal size and normal respiratory collapse consistent with normal right atrial pressure. Conclusions 1.Normal left ventricular systolic function. Normal left ventricular cavity size. Mild concentric left ventricular hypertrophy. Ejection fraction is visually estimated at 60 %. Tissue Doppler/Mitral Doppler indices are consistent with impaired relaxation (Stage I diastolic dysfunction). 2.Trace mitral regurgitation. 3.Trace aortic valve regurgitation. 4.Normal appearance of the tricuspid valve. Unable to obtain RVSP due to minimal presence of tricuspid regurgitation. There is trace tricuspid regurgitation. 5.There is trace pulmonic regurgitation. Electronically Signed By: Eduardo Watson 11-Aug-2017 17:07:50 -0800 Patient Name: LEXUS KUHN Study Date: 10-Aug-2017 [id number]
--- NOTE | 2017-08-11 19:18 | PN ---
Date/Time of Note Date/Time of Note DATE: 08/11/17 TIME: 19:16 Assessment/Plan VTE Prophylaxis VTE Prophylaxis Intervention: other Lines/Catheters IV Catheter Type (from Nrsg): Saline Lock Urinary Cath still in place: No Assessment/Plan Chief Complaint/Hosp Course IMPRESSION: 1. Uncontrolled malignant hypertension.better 2. rt arm numbness better 3. Obesity. 4. dyslipidemia. 5 r/o renovascular htn neg us plan kid us seen ck labs lipitor Problems: Subjective 24 Hr Interval Summary Respiratory: no complaints Cardiovascular: no complaints Gastrointestinal: no complaints Neurologic: other (rt arm numbness better) Exam/Review of Systems Vital Signs Vitals Vital Signs Date Time Temp Pulse Resp B/P Pulse Ox O2 Delivery O2 Flow Rate FiO2 08/11/17 17:08 98.1 80 17 130/63 97 08/09/17 19:20 Room Air Intake and Output 08/10/17 08/10/17 08/11/17 15:00 23:00 07:00 Intake Total 1120 ml 400 ml Balance 1120 ml 400 ml Exam Neck: supple Respiratory: clear to auscultation Cardiovascular: regular rate and rhythm Gastrointestinal: bowel sounds (+), soft Musculoskeletal: nl extremities to inspection Extremities: normal pulses Neurological: EGG SEPARATOR II-XII intact, nl mental status, nl speech, nl strength Results Result Diagram: 08/09/17 1415 08/11/17 0839 Results 24 hrs Laboratory Tests Test 08/11/17 08:39 Sodium Level 139 Potassium Level 4.1 Chloride Level 102 Carbon Dioxide Level 27 Anion Gap 14 Blood Urea Nitrogen 20 Creatinine 1.08 Glucose Level 111 Calcium Level 9.1 Total Bilirubin 0.2 Direct Bilirubin 0.00 Indirect Bilirubin 0.2 Aspartate Amino Transf (AST/SGOT) 69 H Alanine Aminotransferase (ALT/SGPT) 92 H Alkaline Phosphatase 75 Total Protein 7.6 Albumin 4.2 Globulin 3.40 H Albumin/Globulin Ratio 1.23 Medications Medications Current Medications Ondansetron HCl (Zofran Inj) 4 mg Q6H PRN IV NAUSEA AND/OR VOMITING; Start at 18:00 Acetaminophen (Tylenol Tab) 650 mg Q6H PRN PO PAIN LEVEL 1-3 OR FEVER; Start 08/09/17 at 18:00 Morphine Sulfate (morphine) 2 mg Q4H PRN IV SEVERE PAIN LEVEL 7-10; Start at 18:00 Docusate Sodium (Colace) 100 mg Q12H PRN PO CONSTIPATION; Start 08/09/17 at 18 :00 Magnesium Hydroxide (Milk Of Mag) 30 ml DAILY PRN PO CONSTIPATION; Start 08/09 at 18:00 Pantoprazole (Protonix Tab) 40 mg DAILY@06 PO Last administered on 08/11/17 05:34; Admin Dose 40 MG; Start 08/10/17 at 06:00 Enoxaparin Sodium (Lovenox) 40 mg DAILY SC Last administered on 08/11/17 08: 31; Admin Dose 40 MG; Start 08/10/17 at 09:00 Aspirin (Aspirin) 325 mg DAILY PO Last administered on 08/11/17 08:29; Admin Dose 325 MG; Start 08/10/17 at 09:00 Metoprolol Succinate (Toprol Xl) 25 mg DAILY PO Last administered on 08:29; Admin Dose 25 MG; Start 08/10/17 at 09:00 Clonidine (Catapres) 0.1 mg Q8 PO Last administered on 08/11/17 14:19; Admin Dose 0.1 MG; Start 08/09/17 at 22:00 Hydralazine HCl (Apresoline) 20 mg Q6H PRN IV for sbp >170; Start 08/09/17 at 19:00 Atorvastatin Calcium (Lipitor) 40 mg HS PO Last administered on 08/10/17 21: 14; Admin Dose 40 MG; Start 08/10/17 at 21:00 MALCOLM BUSTILLO MD Aug 11, 2017 19:18
[2017-08-11] MEDS: ATORVASTATIN 40 MG TAB PO SCH (20:56)
[2017-08-12] VITALS (11 sets, daily range): BP systolic 119–148; BP diastolic 58–67; PULSE 55–62; RESP 16–20
--- NOTE | 2017-08-12 02:49 | CONS ---
DATE OF ADMISSION: 08/09/2017 DATE OF CONSULTATION: 08/11/2017 NEUROLOGICAL CONSULTATION HISTORY OF PRESENT ILLNESS: The patient is a 61-year-old gentleman who was seen on 08/11/2017 in ne urological consultation by request of Dr. Bustillo. The patient is a gentleman with past medical histo ry of high blood pressure, who was referred by his primary MD secondary to numbness in the right upp er extremity and high blood pressure. In the hospital, patient was admitted for possible TIA/stroke . He had carotid ultrasound was negative for hemodynamically significant lesions. CAT scan of the head did not show any acute abnormality. His labs showed hemoglobin 13.8, hematocrit 41, normal CBC otherwise. AST 69, ALT 92. CK 236. Cholesterol 245, LDL 173. Normal PT, PTT. Urinalysis: Hemo globin and protein was present. Tox screen was negative for drugs. In the hospital, patient was pu t on Lipitor 40 mg, Lovenox was for DVT prevention, aspirin 325. CURRENT MEDICATIONS: 1. Also Toprol. 2. Catapres. 3. Protonix. 4. Diovan. 5. Apresoline. ALLERGIES: HE IS NOT ALLERGIC TO ANY MEDICATIONS. SOCIAL HISTORY: No alcohol, tobacco, drug use. FAMILY HISTORY: Noncontributory. Patient had EKG showed normal sinus rhythm. Echocardiogram which showed normal ejection fraction wi th left ventricular hypertrophy. PHYSICAL EXAMINATION: VITAL SIGNS: Temperature 98.0, pulse 63, 20 respirations, 124/60 blood pressure. GENERAL: Not in acute distress, lying in bed. HEENT: Normocephalic, atraumatic head. NECK: No carotid bruits. No thyromegaly. LUNGS: Clear to auscultation bilaterally. CARDIAC: Normal cardiac rhythm and sounds. ABDOMEN: Soft, nontender. EXTREMITIES: No cyanosis, clubbing or edema. NEUROLOGIC: He is awake, alert, and oriented x3 with fluent speech. Cranial nerve examination show s intact visual gale bilaterally. Pupils round, reactive to light from 3 to 2 mm bilaterally. Ex traocular movements intact without nystagmus. Symmetrical face. Preserved facial strength and sens ation. Tongue moves is in midline. Palate elevates symmetrically. Motor strength examination show s preserved muscle bulk, tone, and strength in all extremities. Sensory examination intact to light touch and pain, and vibration. Deep tendon reflexes 2+ throughout. Downgoing toes bilaterally. C oordination is preserved on [id number] testing. No dysmetria or tremor. Gait was not assesse d. According to the patient, he has no problem ambulating. He stated that numbness has gotten better and now he gets occasional episodic numbness in the finger tips on the right upper extremity. According to the chart, he presented with numbness in the whole right upper extremity, not involving the face or the legs. He denied any neck pain, he stated that he had some pain in the shoulder along with this numbness and on questioning, he stated that it was mostly numbness in the distal part of the hands. IMPRESSION: Transient numbness in the right upper extremity, resolved in gentleman with uncontrolle d hypertension and dyslipidemia. Blood pressure is controlled now. He is on statin and aspirin, co ntinue. I think it is also reasonable to obtain MRI of the brain for evaluation of possible stroke. Continue current treatment otherwise. I think that patient, if his blood pressure is controlled, could be safely discharged home. Thank you very much for this interesting consultation. Dictated By: ASHLEY MICHAEL/MARNIE Conf#: [id number] DID#: [id number] CC: MALCOLM BUSTILLO MD;*End*
[2017-08-12] MEDS: PANTOPRAZOLE (EC) 40 MG TAB PO SCH (05:37)
[2017-08-12] MEDS: VALSARTAN 80 MG TAB PO SCH ×2 (08:02→17:23)
[2017-08-12] MEDS: ASPIRIN 325 MG TAB PO SCH (08:15)
[2017-08-12] MEDS: METOPROLOL (XL) 25 MG TAB PO SCH (08:15)
[2017-08-12] MEDS: ENOXAPARIN 40 MG/0.4 ML SYG SC SCH (08:17)
[2017-08-12 09:01] LABS: ALBUMIN 4.2 g/dl (3.3-4.9); ALBUMIN/GLOBULIN RATIO 1.23; BILIRUBIN,INDIRECT 0.1 mg/dl (0-1.1); BILIRUBIN,TOTAL 0.1 mg/dl (0.2-1.3); CALCIUM 9.1 mg/dl (8.4-10.2); CREATININE 1.14 mg/dl (0.61-1.24); POTASSIUM 4.1 mmol/L (3.5-5.1); TOTAL PROTEIN 7.6 g/dl (6.1-8.1)
--- NOTE | 2017-08-12 13:25 | PDOCDIS ---
Discharge Instructions CONDITION Patient Condition: Stable HOME CARE INSTRUCTIONS: Special Diet: cardiac ACTIVITY: Activity Restrictions: Slowly Increase Activity FOLLOW UP/APPOINTMENTS Follow-up Plan f/u own pcp [address] jaime [address] martin 2 wks MALCOLM BUSTILLO MD Aug 12, 2017 13:25
[2017-08-12] MEDS ORDERED: VALS80TA2 PO (13:29)
[2017-08-12] MEDS ORDERED: ASPI325T4 PO (13:29)
[2017-08-12] MEDS ORDERED: METO-335 PO (13:29)
[2017-08-12] MEDS ORDERED: CLON0.1T14 PO (13:29)
[2017-08-12] MEDS ORDERED: PANT40TA4 PO (13:29)
[2017-08-12] MEDS ORDERED: ATOR40TA68 PO (13:29)
[2017-08-12] MEDS ORDERED: DOCU-216 PO (13:29)
--- NOTE | 2017-08-12 14:00 | CONS ---
Date/Time of Note Date/Time of Note DATE: 08/12/17 TIME: 13:59 Assessment/Plan Assessment/Plan Chief Complaint/Hosp Course IMPRESSION: 1. Hypertensive urgency/emergency-now improved on current regimen. Trop negative x 3. NL EF by echo 2. Dyslipidemia with low HDL. 3. Right upper extremity pain, numbness. 4. Hypertriglyceridemia. 5. Anemia, mild. Recc: -Tele -Continue diovan/BB/clonidine -Continue statin/asa -If BP remains stable then ok for d/c planning from cardiac standpoint Problems: Consultation Date/Type/Reason Admit Date/Time Aug 09, 2017 at 15:00 Initial Consult Date 08/09/2017 Type of Consultation: cardiology Reason for Consultation HTN Referring Provider: MALCOLM BUSTILLO MD Exam/Review of Systems Vital Signs Vitals Vital Signs Date Time Temp Pulse Resp B/P Pulse Ox O2 Delivery O2 Flow Rate FiO2 08/12/17 12:20 59 08/12/17 11:55 98.2 16 123/58 95 08/09/17 19:20 Room Air Intake and Output 08/11/17 08/11/17 08/12/17 15:00 23:00 07:00 Intake Total 800 ml 450 ml Balance 800 ml 450 ml Exam Review of Systems: CONSTITUTIONAL: No fevers, chills. PULMONARY: No sob CARDIOVASCULAR: No chest pain/palpitations GASTROINTESTINAL: No nausea/vomiting. GENITOURINARY: No hematuria/dysuria. MUSCULOSKELETAL: No myagias/arthalgias. PSYCHIATRIC: The patient denies depression. NEUROLOGIC: No weakness Constitutional: alert, oriented Psych: no complaints Head: normocephalic ENMT: mucosa pink and moist Neck: jvd (9 cmwater), supple Respiratory: clear to auscultation Cardiovascular: regular rate and rhythm Gastrointestinal: non-tender, soft Musculoskeletal: muscle tone (normal) Extremities: edema (none) Neurological: other (No focal deficits) Results Result Diagram: 08/09/17 1415 08/12/17 0752 Results 24 hrs Laboratory Tests Test 08/12/17 07:52 Sodium Level 140 Potassium Level 4.1 Chloride Level 104 Carbon Dioxide Level 28 Anion Gap 12 Blood Urea Nitrogen 19 Creatinine 1.14 Glucose Level 102 Calcium Level 9.1 Total Bilirubin 0.1 L Direct Bilirubin 0.00 Indirect Bilirubin 0.1 Aspartate Amino Transf (AST/SGOT) 60 H Alanine Aminotransferase (ALT/SGPT) 86 H Alkaline Phosphatase 80 Total Protein 7.6 Albumin 4.2 Globulin 3.40 H Albumin/Globulin Ratio 1.23 Medications Medications Current Medications Ondansetron HCl (Zofran Inj) 4 mg Q6H PRN IV NAUSEA AND/OR VOMITING; Start at 18:00 Acetaminophen (Tylenol Tab) 650 mg Q6H PRN PO PAIN LEVEL 1-3 OR FEVER; Start 08/09/17 at 18:00 Morphine Sulfate (morphine) 2 mg Q4H PRN IV SEVERE PAIN LEVEL 7-10; Start at 18:00 Docusate Sodium (Colace) 100 mg Q12H PRN PO CONSTIPATION; Start 08/09/17 at 18 :00 Magnesium Hydroxide (Milk Of Mag) 30 ml DAILY PRN PO CONSTIPATION; Start 08/09 at 18:00 Pantoprazole (Protonix Tab) 40 mg DAILY@06 PO Last administered on 08/12/17 05:37; Admin Dose 40 MG; Start 08/10/17 at 06:00 Enoxaparin Sodium (Lovenox) 40 mg DAILY SC Last administered on 08/12/17 08: 17; Admin Dose 40 MG; Start 08/10/17 at 09:00 Aspirin (Aspirin) 325 mg DAILY PO Last administered on 08/12/17 08:15; Admin Dose 325 MG; Start 08/10/17 at 09:00 Metoprolol Succinate (Toprol Xl) 25 mg DAILY PO Last administered on 08:15; Admin Dose 25 MG; Start 08/10/17 at 09:00 Clonidine (Catapres) 0.1 mg Q8 PO Last administered on 08/12/17 05:37; Admin Dose 0.1 MG; Start 08/09/17 at 22:00 Hydralazine HCl (Apresoline) 20 mg Q6H PRN IV for sbp >170; Start 08/09/17 at 19:00 Atorvastatin Calcium (Lipitor) 40 mg HS PO Last administered on 08/11/17 20: 56; Admin Dose 40 MG; Start 08/10/17 at 21:00 REY ADAMS 30, 2017 14:00
--- NOTE | 2017-08-12 16:00 | PN ---
Date/Time of Note Date/Time of Note DATE: 08/12/17 TIME: 15:59 Assessment/Plan VTE Prophylaxis VTE Prophylaxis Intervention: other Lines/Catheters Urinary Cath still in place: No Assessment/Plan Chief Complaint/Hosp Course IMPRESSION: 1. Uncontrolled malignant hypertension.better 2. rt arm numbness better 3. Obesity. 4. dyslipidemia. 5 r/o renovascular htn neg us 6 dyslipedemia 7 abn lft plan ck mri ck labs lipitor Problems: Subjective 24 Hr Interval Summary Cardiovascular: no complaints Gastrointestinal: no complaints Exam/Review of Systems Vital Signs Vitals Vital Signs Date Time Temp Pulse Resp B/P Pulse Ox O2 Delivery O2 Flow Rate FiO2 08/12/17 12:20 59 08/12/17 11:55 98.2 16 123/58 95 08/09/17 19:20 Room Air Intake and Output 08/11/17 08/11/17 08/12/17 15:00 23:00 07:00 Intake Total 800 ml 450 ml Balance 800 ml 450 ml Exam Neck: supple Respiratory: clear to auscultation Cardiovascular: regular rate and rhythm Gastrointestinal: soft Musculoskeletal: nl extremities to inspection Extremities: normal pulses Results Result Diagram: 08/09/17 1415 08/12/17 0752 Results 24 hrs Laboratory Tests Test 08/12/17 07:52 Sodium Level 140 Potassium Level 4.1 Chloride Level 104 Carbon Dioxide Level 28 Anion Gap 12 Blood Urea Nitrogen 19 Creatinine 1.14 Glucose Level 102 Calcium Level 9.1 Total Bilirubin 0.1 L Direct Bilirubin 0.00 Indirect Bilirubin 0.1 Aspartate Amino Transf (AST/SGOT) 60 H Alanine Aminotransferase (ALT/SGPT) 86 H Alkaline Phosphatase 80 Total Protein 7.6 Albumin 4.2 Globulin 3.40 H Albumin/Globulin Ratio 1.23 Medications Medications Current Medications Ondansetron HCl (Zofran Inj) 4 mg Q6H PRN IV NAUSEA AND/OR VOMITING; Start at 18:00 Acetaminophen (Tylenol Tab) 650 mg Q6H PRN PO PAIN LEVEL 1-3 OR FEVER; Start 08/09/17 at 18:00 Morphine Sulfate (morphine) 2 mg Q4H PRN IV SEVERE PAIN LEVEL 7-10; Start at 18:00 Docusate Sodium (Colace) 100 mg Q12H PRN PO CONSTIPATION; Start 08/09/17 at 18 :00 Magnesium Hydroxide (Milk Of Mag) 30 ml DAILY PRN PO CONSTIPATION; Start 08/09 at 18:00 Pantoprazole (Protonix Tab) 40 mg DAILY@06 PO Last administered on 08/12/17 05:37; Admin Dose 40 MG; Start 08/10/17 at 06:00 Enoxaparin Sodium (Lovenox) 40 mg DAILY SC Last administered on 08/12/17 08: 17; Admin Dose 40 MG; Start 08/10/17 at 09:00 Aspirin (Aspirin) 325 mg DAILY PO Last administered on 08/12/17 08:15; Admin Dose 325 MG; Start 08/10/17 at 09:00 Metoprolol Succinate (Toprol Xl) 25 mg DAILY PO Last administered on 08:15; Admin Dose 25 MG; Start 08/10/17 at 09:00 Clonidine (Catapres) 0.1 mg Q8 PO Last administered on 08/12/17 14:03; Admin Dose 0.1 MG; Start 08/09/17 at 22:00 Hydralazine HCl (Apresoline) 20 mg Q6H PRN IV for sbp >170; Start 08/09/17 at 19:00 Atorvastatin Calcium (Lipitor) 40 mg HS PO Last administered on 08/11/17 20: 56; Admin Dose 40 MG; Start 08/10/17 at 21:00 MALCOLM BUSTILLO MD Aug 12, 2017 16:00
--- NOTE | 2017-08-12 16:49 | RADRPT ---
PROCEDURE: US Abdomen (right upper quadrant). CLINICAL INDICATION: Elevated liver function tests. TECHNIQUE: Multiple real-time longitudinal and transverse images of the right upper quadrant of th e abdomen were acquired utilizing a curved array transducer. Images were reviewed on a high-resoluti on PACS workstation. COMPARISON: None FINDINGS: The liver is normal in size and diffusely increased in echogenicity. There is no focal hepatic lesion. Color Doppler and pulsed Doppler sonography demonstrate normal a ntegrade flow in the portal vein. The gallbladder is normal with no stones or wall thickening. There is no pericholecystic fluid rangel ection. The bile ducts are normal with the common bile duct measuring 5.0 mm in diameter. The pancreas is not visualized due to overlying bowel gas. No free fluid is present. The right kidney measures 10.0 cm. There is normal echogenicity of the right kidney. There is no perinephric fluid collection. No hydronephrosis, mass, or calculus is seen. IMPRESSION: 1. Fatty metamorphosis of the liver. 2. Pancreas not visualized. 3. No gallstones or evidence of cholecystitis. 4. Otherwise unremarkable right upper quadrant abdomen ultrasound. RPTAT: QQ .Kojo Ro MD, MD Date Time Electronically viewed and signed by .Kojo Ro MD, on 08/12/2017 16:49 .R/
--- NOTE | 2017-08-12 19:40 | RADRPT ---
Echocardiogram Report Patient Name: LEXUS KUHN Gender: Male Date: 1955 Study Date: 12-Aug-2017 Assistant Head Cashier: Mamadou [facility] Location: [facility] Ref. Physician: REY WATSON Quality: Adequate Procedures: Transthoracic echocardiogram with complete 2D, M-Mode, and doppler examination. Indications: Hypertension. 2D/M Mode Doppler Measurement Value Normal Ranges Measurement Value Normal Ranges LVIDd 2D 4.5 3.5 - 5.6 cm AV Peak Cesar 1.2 m/sec LVIDs 2D 2.8 2.1 - 4.1 cm AV Peak PG 6.0 mmHg FS 2D 39.0 % LVOT Peak Cesar 0.8 m/sec LVPWd 2D 1.3 0.6 - 1.1 cm LVOT Peak PG 2.0 mmHg IVSd 2D 1.3 0.6 - 1.1 cm MV E Peak Cesar 0.7 m/sec IVS/LVPW 2D 1.0 MV A Peak Cesar 0.7 m/sec AoR Diam 2D 2.9 2.0 - 3.7 cm MV E/A 1.1 LA/Ao 2D 1 0 - 1 MV Decel Time 215 msec EDV 2D 91.7 cm3 MV E/A 1.1 ESV 2D 20.8 cm3 LA Dimen 2D 3.2 2.3 - 4.0 cm Findings Left Ventricle: Normal left ventricular systolic function. Normal left ventricular cavity size. Mild concentric left ventricular hypertrophy. Ejection fraction is visually estimated at 60 %. Tissue Doppler/Mitral Doppler indices are consistent with impaired relaxation (Stage I diastolic dysfunction). Right Ventricle: Normal right ventricular size. Normal right ventricular systolic function. Left Atrium: The left atrium is normal in size. Right Atrium: The right atrium is normal in size. Mitral Valve: Mild mitral leaflet calcification. Mild mitral annular calcification. Trace mitral regurgitation. Aortic Valve: Normal appearance of the aortic valve. No significant aortic stenosis or insufficiency. Tricuspid Valve: Normal appearance of the tricuspid valve. Unable to obtain RVSP due to minimal presence of tricuspid regurgitation. There is trace tricuspid regurgitation. Pulmonic Valve: Pulmonic valve not well visualized. There is trace pulmonic regurgitation. Pericardium: Normal pericardium with no significant pericardial effusion. Aorta: Normal aortic root. IVC: Normal size and normal respiratory collapse consistent with normal right atrial pressure. Conclusions 1.Normal left ventricular systolic function. Normal left ventricular cavity size. Mild concentric left ventricular hypertrophy. Ejection fraction is visually estimated at 60 %. Tissue Doppler/Mitral Doppler indices are consistent with impaired relaxation (Stage I diastolic dysfunction). 2.Mild mitral leaflet calcification. Mild mitral annular calcification. Trace mitral regurgitation. 3.Normal appearance of the tricuspid valve. Unable to obtain RVSP due to minimal presence of tricuspid regurgitation. There is trace tricuspid regurgitation. 4.Pulmonic valve not well visualized. There is trace pulmonic regurgitation. Electronically Signed By: Rey Watson 12-Aug-2017 19:39:42 -0800 Patient Name: LEXUS KUHN Study Date: 12-Aug-2017 [id number]
[2017-08-12] MEDS: ATORVASTATIN 40 MG TAB PO SCH (22:00)
[2017-08-13] VITALS (10 sets, daily range): BP systolic 119–147; BP diastolic 59–71; PULSE 53–59; RESP 19–21
[2017-08-13] MEDS: PANTOPRAZOLE (EC) 40 MG TAB PO SCH (06:06)
--- NOTE | 2017-08-13 07:12 | RADRPT ---
PROCEDURE: MRI Brain without contrast. CLINICAL INDICATION: Right upper extremity paresthesias with hypertension TECHNIQUE: An MRI of the brain was performed on a high resolution hi-definition MRI scanner utiliz ing the following sequences: Sagittal and axial T1 weighted, axial T2 weighted, axial T2 FLAIR, axia l diffusion weighted with ADC mapping, and coronal GRE. COMPARISON: CT brain 08/09/2017 and carotid ultrasound 08/09/2017 FINDINGS: The scalp and calvarium are normal. The bilateral orbits are normal. The bilateral paranasal sinuses , bilateral mastoid air cells and middle ear cavities are clear. No extra-axial fluid collections are present. The ventricles and sulci are age appropriate. Minimal diffuse volume loss is present. No evidence of intracranial hemorrhage, mass effect or midline shift is present. No evidence for signal abnormalities are noted in the bilateral cerebral hemispheres,th e brain stem, and the cerebellum. No diffusion weighted abnormalities are seen to suggest the presen ce of acute ischemia or recent infarct. No hypointense signal abnormalities are seen on the GRE cyn ges to suggest the presence of blood degradation products. Normal flow voids are visible in the proximal intracranial arteries and dural sinuses, indicating patency. IMPRESSION: 1. No acute intracranial infarcts, hemorrhage, or acute intracranial pathology. 2. Minimal diffuse volume loss RPTAT: HDC .Noy Nguyễn MD, MD Date Time Electronically viewed and signed by .Noy Nguyễn MD, on 08/13/2017 07:12 .C/
[2017-08-13 07:45] LABS: ALBUMIN 4.1 g/dl (3.3-4.9); ALBUMIN/GLOBULIN RATIO 1.13; BILIRUBIN,INDIRECT 0.3 mg/dl (0-1.1); BILIRUBIN,TOTAL 0.3 mg/dl (0.2-1.3); CALCIUM 9.3 mg/dl (8.4-10.2); CREATININE 1.15 mg/dl (0.61-1.24); POTASSIUM 4.5 mmol/L (3.5-5.1); TOTAL PROTEIN 7.7 g/dl (6.1-8.1)
[2017-08-13] MEDS: METOPROLOL (XL) 25 MG TAB PO SCH (08:59)
[2017-08-13] MEDS: ENOXAPARIN 40 MG/0.4 ML SYG SC SCH (08:59)
[2017-08-13] MEDS: ASPIRIN 325 MG TAB PO SCH (09:00)
[2017-08-13] MEDS: VALSARTAN 80 MG TAB PO SCH ×2 (09:00→17:12)
--- NOTE | 2017-08-13 13:37 | PN ---
Date/Time of Note Date/Time of Note DATE: 08/13/17 TIME: 13:36 Assessment/Plan VTE Prophylaxis VTE Prophylaxis Intervention: ambulation Lines/Catheters IV Catheter Type (from Nrsg): Saline Lock Urinary Cath still in place: No Assessment/Plan Chief Complaint/Hosp Course 1. Uncontrolled malignant hypertension,better 2. rt arm numbness better 3. Obesity. 4. Dyslipidemia. 5. r/o renovascular htn neg us 6. dyslipedemia 7. abn LFT Problems: Assessment/Plan 1. continue current meds 2. Possible discharge Subjective 24 Hr Interval Summary Constitutional: improved, no complaints Exam/Review of Systems Vital Signs Vitals Vital Signs Date Time Temp Pulse Resp B/P Pulse Ox O2 Delivery O2 Flow Rate FiO2 08/13/17 12:28 57 08/13/17 12:03 98.3 19 119/59 96 08/09/17 19:20 Room Air Intake and Output 08/12/17 08/12/17 08/13/17 15:00 23:00 07:00 Intake Total 700 ml 400 ml Balance 700 ml 400 ml Exam Constitutional: alert, oriented Respiratory: clear to auscultation Cardiovascular: regular rate and rhythm Results Result Diagram: 08/09/17 1415 08/13/17 0632 Results 24 hrs Laboratory Tests Test 08/13/17 06:32 Sodium Level 141 Potassium Level 4.5 Chloride Level 102 Carbon Dioxide Level 29 Anion Gap 15 Blood Urea Nitrogen 21 H Creatinine 1.15 Glucose Level 99 Calcium Level 9.3 Total Bilirubin 0.3 Direct Bilirubin 0.00 Indirect Bilirubin 0.3 Aspartate Amino Transf (AST/SGOT) 66 H Alanine Aminotransferase (ALT/SGPT) 94 H Alkaline Phosphatase 79 Total Protein 7.7 Albumin 4.1 Globulin 3.60 H Albumin/Globulin Ratio 1.13 Medications Medications Current Medications Ondansetron HCl (Zofran Inj) 4 mg Q6H PRN IV NAUSEA AND/OR VOMITING; Start at 18:00 Acetaminophen (Tylenol Tab) 650 mg Q6H PRN PO PAIN LEVEL 1-3 OR FEVER; Start 08/09/17 at 18:00 Morphine Sulfate (morphine) 2 mg Q4H PRN IV SEVERE PAIN LEVEL 7-10; Start at 18:00 Docusate Sodium (Colace) 100 mg Q12H PRN PO CONSTIPATION; Start 08/09/17 at 18 :00 Magnesium Hydroxide (Milk Of Mag) 30 ml DAILY PRN PO CONSTIPATION; Start 08/09 at 18:00 Pantoprazole (Protonix Tab) 40 mg DAILY@06 PO Last administered on 08/13/17 06 :06; Admin Dose 40 MG; Start 08/10/17 at 06:00 Enoxaparin Sodium (Lovenox) 40 mg DAILY SC Last administered on 08/13/17 08:59 ; Admin Dose 40 MG; Start 08/10/17 at 09:00 Aspirin (Aspirin) 325 mg DAILY PO Last administered on 08/13/17 09:00; Admin Dose 325 MG; Start 08/10/17 at 09:00 Metoprolol Succinate (Toprol Xl) 25 mg DAILY PO Last administered on 08/13/17 08:59; Admin Dose 25 MG; Start 08/10/17 at 09:00 Clonidine (Catapres) 0.1 mg Q8 PO Last administered on 08/13/17 06:07; Admin Dose 0.1 MG; Start 08/09/17 at 22:00 Hydralazine HCl (Apresoline) 20 mg Q6H PRN IV for sbp >170; Start 08/09/17 at 19:00 Atorvastatin Calcium (Lipitor) 40 mg HS PO Last administered on 08/12/17 22: 00; Admin Dose 40 MG; Start 08/10/17 at 21:00 ELIZABETH WANG Aug 13, 2017 13:37
--- NOTE | 2017-08-13 15:32 | CONS ---
Date/Time of Note Date/Time of Note DATE: 08/13/17 TIME: 15:31 Assessment/Plan Assessment/Plan Chief Complaint/Hosp Course IMPRESSION: 1. Hypertensive urgency/emergency-now improved on current regimen. Trop negative x 3. NL EF by echo 2. Dyslipidemia with low HDL. 3. Right upper extremity pain, numbness. 4. Hypertriglyceridemia. 5. Anemia, mild. Recc: -Tele -Continue diovan/BB/clonidine -Continue statin/asa -If BP remains contnues to remain stable then ok for d/c planning from cardiac standpoint Problems: Consultation Date/Type/Reason Admit Date/Time Aug 09, 2017 at 15:00 Initial Consult Date 08/09/2017 Type of Consultation: cardiology Reason for Consultation HTN Referring Provider: MALCOLM BUSTILLO MD Exam/Review of Systems Vital Signs Vitals Vital Signs Date Time Temp Pulse Resp B/P Pulse Ox O2 Delivery O2 Flow Rate FiO2 08/13/17 12:28 57 08/13/17 12:03 98.3 19 119/59 96 08/09/17 19:20 Room Air Intake and Output 08/12/17 08/12/17 08/13/17 15:00 23:00 07:00 Intake Total 700 ml 400 ml Balance 700 ml 400 ml Exam Review of Systems: CONSTITUTIONAL: No fevers, chills. PULMONARY: No sob CARDIOVASCULAR: No chest pain/palpitations GASTROINTESTINAL: No nausea/vomiting. GENITOURINARY: No hematuria/dysuria. MUSCULOSKELETAL: No myagias/arthalgias. PSYCHIATRIC: The patient denies depression. NEUROLOGIC: No weakness Constitutional: alert, oriented Psych: no complaints Head: normocephalic ENMT: mucosa pink and moist Neck: jvd (8 cm water), supple Respiratory: clear to auscultation Cardiovascular: regular rate and rhythm Gastrointestinal: non-tender, soft Musculoskeletal: muscle tone (normal) Extremities: edema (none) Neurological: other (No focal deficits) Results Result Diagram: 08/09/17 1415 08/13/17 0632 Results 24 hrs Laboratory Tests Test 08/13/17 06:32 Sodium Level 141 Potassium Level 4.5 Chloride Level 102 Carbon Dioxide Level 29 Anion Gap 15 Blood Urea Nitrogen 21 H Creatinine 1.15 Glucose Level 99 Calcium Level 9.3 Total Bilirubin 0.3 Direct Bilirubin 0.00 Indirect Bilirubin 0.3 Aspartate Amino Transf (AST/SGOT) 66 H Alanine Aminotransferase (ALT/SGPT) 94 H Alkaline Phosphatase 79 Total Protein 7.7 Albumin 4.1 Globulin 3.60 H Albumin/Globulin Ratio 1.13 Medications Medications Current Medications Ondansetron HCl (Zofran Inj) 4 mg Q6H PRN IV NAUSEA AND/OR VOMITING; Start at 18:00 Acetaminophen (Tylenol Tab) 650 mg Q6H PRN PO PAIN LEVEL 1-3 OR FEVER; Start 08/09/17 at 18:00 Morphine Sulfate (morphine) 2 mg Q4H PRN IV SEVERE PAIN LEVEL 7-10; Start at 18:00 Docusate Sodium (Colace) 100 mg Q12H PRN PO CONSTIPATION; Start 08/09/17 at 18 :00 Magnesium Hydroxide (Milk Of Mag) 30 ml DAILY PRN PO CONSTIPATION; Start 08/09 at 18:00 Pantoprazole (Protonix Tab) 40 mg DAILY@06 PO Last administered on 08/13/17 06 :06; Admin Dose 40 MG; Start 08/10/17 at 06:00 Enoxaparin Sodium (Lovenox) 40 mg DAILY SC Last administered on 08/13/17 08:59 ; Admin Dose 40 MG; Start 08/10/17 at 09:00 Aspirin (Aspirin) 325 mg DAILY PO Last administered on 08/13/17 09:00; Admin Dose 325 MG; Start 08/10/17 at 09:00 Metoprolol Succinate (Toprol Xl) 25 mg DAILY PO Last administered on 08/13/17 08:59; Admin Dose 25 MG; Start 08/10/17 at 09:00 Clonidine (Catapres) 0.1 mg Q8 PO Last administered on 08/13/17 13:53; Admin Dose 0.1 MG; Start 08/09/17 at 22:00 Hydralazine HCl (Apresoline) 20 mg Q6H PRN IV for sbp >170; Start 08/09/17 at 19:00 Atorvastatin Calcium (Lipitor) 40 mg HS PO Last administered on 08/12/17 22: 00; Admin Dose 40 MG; Start 08/10/17 at 21:00 REY ADAMS Aug 13, 2017 15:32
== END 2017-08-13 18:50 | disposition home or self-care (01) | DRG 305 ==
LOC: E/R 13:09 → MS3 15:00 → MS4 08-10 00:23
PROVIDERS: ADMIT Internal Medicine Nephrology; ATTEND Internal Medicine Nephrology
DX: I16.1 Hypertensive emergency (principal); E78.5 Hyperlipidemia, unspecified; E66.9 Obesity, unspecified; I16.0 Hypertensive urgency; Z68.27 Body mass index [BMI] 27.0-27.9, adult; M79.601 Pain in right arm; R20.0 Anesthesia of skin; D64.9 Anemia, unspecified
CPT/HCPCS: 36415; 70450; 70551; 71010; 76705; 76775; 80048; 80053; 80061; 80307; 81001; 82550; 82553; 83036; 84484; 85025; 85610; 85730; 92610; 93005; 93306; 93880; J1650